=== PATIENT | female | born 1980 | race African-American/Black ===

== ENCOUNTER 2017-11-22 17:51 | Emergency (ER) | payer OTHER ==
[~2017-11-22] VITALS: Ht 162.6 cm; Wt 78.5 kg
[2017-11-22 18:28] LABS: PLATELET COUNT 389 K/uL (152-353)
[2017-11-22 19:13] LABS: POTASSIUM 3.6 mmol/L (3.6-5.2)
[2017-11-22 20:27] VITALS: BP 119/74; TEMP 98.4
== END 2017-11-22 20:29 | disposition home or self-care (01) ==
LOC: ED 17:51
DX: Z33.1 Pregnant state, incidental (principal); Z3A.01 Less than 8 weeks gestation of pregnancy; R06.02 Shortness of breath
CPT/HCPCS: 36415; 80053; 81000; 81025; 84702; 85027; 87804; 93005; 99283